=== PATIENT | female | born 1980 | race Caucasian/White ===

== ENCOUNTER 2018-01-28 03:17 | Emergency (ER) | payer SELFPAY ==
[2018-01-28] MEDS ORDERED: ACETAMINOPHEN 325 MG TABLET PO ONE (03:31)
--- NOTE | 2018-01-28 04:03 | ER Document Report ---
HPI - HPI Patient complains to provider of: left ankle and foot injury Pain Level: 4 Context: Patient is a 37-year-old female that comes to the emergency department for chief complaint of left foot/ankle injury. She states she was walking outside in the rain, she accidentally slipped and inverted her ankle/foot causing pain and some swelling over the foot. She called EMS and was brought to the emergency department. She denies fall or any other injuries. LMP within the past month. She denies any daily medications or medical problems. - REPRODUCTIVE LMP: na Past Medical History - General Information source: Patient - Social History Smoking Status: Never Smoker Frequency of alcohol use: None Drug Abuse: None Lives with: Family Family History: Reviewed & Not Pertinent - Medical History Medical History: Negative Surgical Hx: Negative - Immunizations Immunizations up to date: Yes Hx Diphtheria, Pertussis, Tetanus Vaccination: Yes Vertical Provider Document - CONSTITUTIONAL General Appearance: WD/WN, No Apparent Distress - INFECTION CONTROL TRAVEL OUTSIDE OF THE [place] IN LAST 30 DAYS: No - HEENT HEENT: Atraumatic, Normocephalic - NECK Neck: Normal Inspection - RESPIRATORY Respiratory: Breath Sounds Normal, No Respiratory Distress - CARDIOVASCULAR Cardiovascular: Regular Rate, Regular Rhythm - GI/ABDOMEN Gastrointestinal: Abdomen Soft, Abdomen Non-Tender - BACK Back: Normal Inspection - MUSCULOSKELETAL/EXTREMETIES Musculoskeletal/Extremeties: Tender - Tenderness over the dorsum of the foot and over the MTPs of the left foot, small amount of bruising noted over the dorsum of the foot as well, this is minimal. No open wounds. Range of motion of the ankle intact, unremarkable leg, knee, hip exam. Capillary refill and sensation intact, dorsalis pedis intact. Course - Re-evaluation Re-evalutation: Patient secondarily asks me to look at her back, she has an area that appears to be soft fatty tissue just under the skin on the left upper/mid back. Probably lipoma, no erythema or significant tenderness. Recommended surgical clinic follow-up for this. Imaging unremarkable, minimal bruising over the dorsum of the foot on exam, unremarkable exam otherwise. Suspect sprain and soft tissue injury only. Placed mobilization, discussed treatment, expectations, follow-up, return precautions. Patient states satisfaction and agreement. - Vital Signs Vital signs: Temp Pulse Resp BP Pulse Ox 98.2 F 86 18 110/62 98 01/28/18 03:34 01/28/18 03:34 01/28/18 03:34 01/28/18 03:34 01/28/18 03:34 Procedures - Immobilization Left ankle Pre-Proc Neuro Vasc Exam: Normal Immobilizer type: Norman wrap, Ankle stirrup Performed by: RN Post-Proc Neuro Vasc Exam: Normal Alignment checked and good: Yes Discharge - Discharge Clinical Impression: Left ankle injury Qualifiers: Encounter type: initial encounter Qualified Code(s): S99.912A - Unspecified injury of left ankle, initial encounter Injury of left foot Qualifiers: Encounter type: initial encounter Qualified Code(s): S99.922A - Unspecified injury of left foot, initial encounter Condition: Stable Disposition: HOME, SELF-CARE Additional Instructions: Your examination is consistent with a sprain of the ATF ligament of the left foot/ankle. This can cause swelling and pain. Recommendation is to elevate, ice 3-4 times a day for 10-15 minutes, take prescribed anti-inflammatory, use the splint/wrap, use the crutches for 2-3 days. After a brief period the symptoms of swelling and pain should resolve, resume activity as tolerated. Follow-up with primary care. Return for any concerning symptoms including severe swelling or pain. In regards to your back, there appears to be a lipoma although this is not definite. Follow-up electively routinely with the surgical clinic referral for additional management. Prescriptions: Naproxen 500 mg PO BID PRN #20 tablet PRN Reason: Referrals: [facility] [Provider Group] - Follow up as needed
--- NOTE | 2018-01-28 04:15 | RADIOLOGY REPORT (SQ) ---
EXAM DESCRIPTION: 3 views of the left ankle CLINICAL HISTORY: 37 years, Female, injury COMPARISON: None. FINDINGS: There is no acute fracture or dislocation. There is no focal soft tissue swelling or joint effusion. The bony alignment is normal. Limited evaluation of the distal tibia/ fibula demonstrate no gross abnormalities. The talus, calcaneus, tarsal, and metatarsal bones are grossly normal in appearance. The intertarsal, tarsometatarsal, and visualized metatarsophalangeal joints are grossly normal in appearance. IMPRESSION: No acute fracture or dislocation.
--- NOTE | 2018-01-28 04:15 | RADIOLOGY REPORT (SQ) ---
EXAM DESCRIPTION: 3 views of the left foot January 28, 2018 CLINICAL HISTORY: 37 years, Female, injury COMPARISON: None. FINDINGS: There is no acute fracture or dislocation. The bony alignment is normal. There is no focal soft tissue swelling or joint effusion. The tarsal, metatarsal, and phalangeal bones are normal in appearance. The intertarsal, tarsometatarsal, metatarsophalangeal, and interphalangeal joints are grossly normal. IMPRESSION: No acute fracture or dislocation.
[2018-01-28] MEDS ORDERED: HYDROCODONE/ACETAMINOPHEN 5-325 MG TABLET PO ONE (04:44)
[2018-01-28 05:02] VITALS: BP 123/76
== END 2018-01-28 05:00 | disposition home or self-care (01) ==
LOC: ER 03:17
PROC: 2W3RX1Z Immobilization of Left Lower Leg using Splint (ICD-10-PCS; principal; 2018-01-28)
DX: S99.912A Unspecified injury of left ankle, initial encounter (principal); S99.922A Unspecified injury of left foot, initial encounter; X50.0XXA Overexertion from strenuous movement or load, initial encounter
CPT/HCPCS: 99284

== ENCOUNTER 2018-09-30 18:13 | Emergency (ER) | payer SELFPAY ==
[2018-09-30] MEDS ORDERED: HYDROCODONE/ACETAMINOPHEN 5-325 MG TABLET PO ONE (19:35)
--- NOTE | 2018-09-30 19:46 | ER Document Report ---
HPI - HPI Patient complains to provider of: Right ankle and foot pain Time Seen by Provider: 09/30/18 19:28 Onset: Yesterday Onset/Duration: Sudden Quality of pain: Sharp Pain Level: 5 Context: Patient states she was stepping down and felt a sudden pop in the ankle area. Patient states since then she has had pain to the right foot and ankle. Patient also complains of a lump to the upper back area that has been there for the past year. Associated Symptoms: Other - Right ankle pain, lump to thoracic back area Exacerbated by: Standing, Movement, Walking Relieved by: Denies Similar symptoms previously: No Recently seen / treated by doctor: No - ROS ROS below otherwise negative: Yes Systems Reviewed and Negative: Yes All other systems reviewed and negative - CONSTITUTIONAL Constitutional: DENIES: Fever - NEURO Neurology: DENIES: Weakness - RESPIRATORY Respiratory: DENIES: Trouble Breathing, Coughing - GASTROINTESTINAL Gastrointestinal: DENIES: Nausea - REPRODUCTIVE Reproductive: DENIES: : - MUSCULOSKELETAL Musculoskeletal: REPORTS: Extremity pain - right ankle. DENIES: Swelling - DERM Skin Color: Normal Skin Problems: Cyst - Upper back area Past Medical History - General Information source: Patient - Social History Smoking Status: Current Every Day Smoker Frequency of alcohol use: Occasional Drug Abuse: None Occupation: Retail Lives with: Spouse/Significant other Family History: Reviewed & Not Pertinent Patient has suicidal ideation: No Patient has homicidal ideation: No - Medical History Medical History: Negative Renal/ Medical History: Denies: Hx Peritoneal Dialysis Past Surgical History: Reports: Hx Tonsillectomy - Immunizations Immunizations up to date: Yes Hx Diphtheria, Pertussis, Tetanus Vaccination: Yes Vertical Provider Document - CONSTITUTIONAL Agree With Documented VS: Yes Exam Limitations: No Limitations General Appearance: WD/WN, No Apparent Distress - INFECTION CONTROL TRAVEL OUTSIDE OF THE [place] IN LAST 30 DAYS: No - HEENT HEENT: Atraumatic, Normocephalic - NECK Neck: Normal Inspection. negative: Lymphadenopathy-Left, Lymphadenopathy-Right - RESPIRATORY Respiratory: Breath Sounds Normal, No Respiratory Distress - CARDIOVASCULAR Cardiovascular: Regular Rate, Regular Rhythm Pulses: Normal: Dorsalis pedis - BACK Back: Abnormal Inspection - Mobile nodular lesion to mid thoracic area, no overlying erythema. negative: CVA Tenderness-Right, CVA Tenderness-Left - MUSCULOSKELETAL/EXTREMETIES Musculoskeletal/Extremeties: MAEW, Tender - Tenderness over right foot days of the fifth metatarsal, tenderness over lateral malleolar area and posterior ankle. Normal skin color and temperature overlying joint. No edema. Patient with exaggerated pain response with very minimal light palpation, No Edema. negative: Eccymosis - NEURO Level of Consciousness: Awake, Alert, Appropriate Motor/Sensory: No Motor Deficit, No Sensory Deficit - DERM Integumentary: Warm, Dry, No Rash Course - Re-evaluation Re-evalutation: 09/30/18 20:40 No acute fracture. Patient states pain is resolved at this time. No concern f or septic arthritis or gout at this time. Will treat for likely sprain. Patient encouraged to follow-up with general surgeon for further evaluation of cystic type lesion to her back. - Vital Signs Vital signs: Temp Pulse Resp BP Pulse Ox 98.2 F 80 20 116/79 96 09/30/18 18:19 09/30/18 18:19 09/30/18 18:19 09/30/18 18:19 09/30/18 18:19 - Diagnostic Test Radiology reviewed: Image reviewed, Reports reviewed Procedures - Immobilization Right Ankle Pre-Proc Neuro Vasc Exam: Normal Immobilizer type: Ankle stirrup Performed by: PCT Post-Proc Neuro Vasc Exam: Normal Alignment checked and good: Yes Discharge - Discharge Clinical Impression: Subcutaneous cyst Ankle sprain Qualifiers: Encounter type: initial encounter Involved ligament of ankle: unspecified ligament Laterality: right Qualified Code(s): S93.401A - Sprain of unspecified ligament of right ankle, initial encounter Condition: Stable Disposition: HOME, SELF-CARE Instructions: Ankle Stirrup Splint ([facility]), Use of Crutches ([facility]), Ice Packs ([facility]), Sprained Ankle ([facility]) Additional Instructions: Return immediately for any new or worsening symptoms Followup with your primary care provider, call tomorrow to make a followup appointment Weightbearing as tolerated Follow-up with orthopedics for any persistent pain or problems Follow-up with general surgeon for further evaluation of the cyst on your back Prescriptions: Naproxen [Naprosyn 250 Nmg Tablet] 1 tab PO BID #14 tablet Forms: Smoking Cessation Education, Return to Work Referrals: [facility] ([facility] [Provider Group] - Follow up as needed [facility] [Provider Group] - Follow up as needed
--- NOTE | 2018-09-30 20:03 | RADIOLOGY REPORT (SQ) ---
EXAM DESCRIPTION: ANKLE RIGHT COMPLETE COMPLETED DATE/TIME: 09/30/2018 7:49 pm REASON FOR STUDY: felt pop in foot/ankle, pain COMPARISON: Concurrent foot radiographs NUMBER OF VIEWS: Three views. TECHNIQUE: AP, lateral, and oblique radiographic images acquired of the right ankle. LIMITATIONS: None. FINDINGS: MINERALIZATION: Normal. BONES: No acute fracture or dislocation. No worrisome bone lesions. JOINTS: No effusions. SOFT TISSUES: No soft tissue gas. No foreign body. OTHER: No other significant finding. IMPRESSION: NEGATIVE STUDY OF THE RIGHT ANKLE. NO RADIOGRAPHIC EVIDENCE OF ACUTE INJURY. TECHNICAL DOCUMENTATION: JOB ID: [id number] [employer]- All Rights Reserved Reading location - IP/workstation name: [email or web address]
--- NOTE | 2018-09-30 20:03 | RADIOLOGY REPORT (SQ) ---
EXAM DESCRIPTION: FOOT RIGHT COMPLETE COMPLETED DATE/TIME: 09/30/2018 7:49 pm REASON FOR STUDY: felt pop in foot/ankle, pain COMPARISON: Concurrent ankle radiographs NUMBER OF VIEWS: Three views. TECHNIQUE: AP, lateral and oblique radiographic images acquired of the right foot. LIMITATIONS: None. FINDINGS: MINERALIZATION: Normal. BONES: No acute fracture or dislocation. No worrisome bone lesions. JOINTS: No effusions. SOFT TISSUES: No soft tissue swelling. No foreign body. OTHER: No other significant finding. IMPRESSION: NEGATIVE STUDY OF THE RIGHT FOOT. NO RADIOGRAPHIC EVIDENCE OF ACUTE INJURY. TECHNICAL DOCUMENTATION: JOB ID: [id number] [employer]- All Rights Reserved Reading location - IP/workstation name: [email or web address]
[2018-09-30 20:59] VITALS: BP 130/87
== END 2018-09-30 20:58 | disposition home or self-care (01) ==
LOC: ER 18:13
DX: S93.401A Sprain of unspecified ligament of right ankle, initial encounter (principal); M79.671 Pain in right foot; M25.572 Pain in left ankle and joints of left foot; X58.XXXA Exposure to other specified factors, initial encounter; R22.2 Localized swelling, mass and lump, trunk; F17.200 Nicotine dependence, unspecified, uncomplicated
CPT/HCPCS: 99283; 73610; 73630; L1902

== ENCOUNTER 2018-12-01 10:20 | Emergency (ER) | payer SELFPAY ==
[2018-12-01 10:27] VITALS: BP 119/68
--- NOTE | 2018-12-01 10:37 | ER Document Report ---
HPI - HPI Time Seen by Provider: 12/01/18 10:31 Pain Level: 4 Notes: Patient is a 38-year-old female with no significant past medical history who presents complaining of right index finger pain status post crush injury between 2 doors prior to arrival. Patient states that she has noticed some swelling. She does have pain with movement of the finger. The pain does not radiate. Denies drug allergies. No other concerns or complaints. Denies any headache, fever, neck pain, URI, sore throat, chest pain, palpitations, syncope, cough, shortness of breath, wheeze, dyspnea, abdominal pain, nausea/vomiting/diarrhea, urinary retention, dysuria, hematuria, loss of control of bowel or bladder, numbness/tingling, muscle paralysis/weakness, or rash. - ROS Systems Reviewed and Negative: Yes All other systems reviewed and negative - REPRODUCTIVE Reproductive: DENIES: : Past Medical History - Social History Smoking Status: Current Some Day Smoker Family History: Reviewed & Not Pertinent Renal/ Medical History: Denies: Hx Peritoneal Dialysis Past Surgical History: Reports: Hx Tonsillectomy - Immunizations Immunizations up to date: Yes Hx Diphtheria, Pertussis, Tetanus Vaccination: Yes Vertical Provider Document - CONSTITUTIONAL Agree With Documented VS: Yes Notes: PHYSICAL EXAMINATION: GENERAL: Well-appearing, well-nourished and in no acute distress. HEAD: Atraumatic, normocephalic. NECK: Normal range of motion, supple without lymphadenopathy. No midline tenderness. LUNGS: Breath sounds clear to auscultation bilaterally and equal. No wheezes rales or rhonchi. HEART: Regular rate and rhythm without murmurs, rubs, gallops. Musculoskeletal: Rt hand/wrist: + swelling and minimal ecchymosis (w/o subungual hematoma) noted to the index finger distally with associated tenderness. No nail damage. N/V intact distal. FROM to passive/active at the wrist. Strength 5+/5. No scaphoid tenderness. Extremities: No cyanosis, clubbing, or edema b/l. Peripheral pulses 2+. Capillary refill less than 3 seconds. NEUROLOGICAL: Normal speech, normal gait. Normal sensory, motor exams otherwise unremarkable PSYCH: Normal mood, normal affect. SKIN: see above. No rash - INFECTION CONTROL TRAVEL OUTSIDE OF THE [place] IN LAST 30 DAYS: No Course - Re-evaluation Re-evalutation: 12/01/18 Patient is an afebrile, well-hydrated, 38-year-old female who presents to the ED with right index pain which I suspect to be a contusion. Vitals are acceptable without any significant tachycardia, tachypnea, or hypoxia. PE is otherwise unremarkable for any neurovascular compromise, obvious tendon/ligament rupture, obvious fracture/dislocation, septic joint. X-ray was unremarkable for any acute pathology. Finger splint provided today. Patient is nontoxic-appearing. No other labs or imaging warranted at this time based on H&P. Conservative measures otherwise for symptoms. Recheck with your PCM in 3-5 days. Consider consult orthopedics. Return to the ED with any worsening/concerning symptoms otherwise as reviewed in discharge. Patient is in agreement. - Vital Signs Vital signs: Temp Pulse Resp BP Pulse Ox 98.0 F 118 H 18 119/68 93 12/01/18 10:26 12/01/18 10:26 12/01/18 10:26 12/01/18 10:26 12/01/18 10:26 Discharge - Discharge Clinical Impression: Finger injury Qualifiers: Encounter type: initial encounter Laterality: right Qualified Code(s): S69.91XA - Unspecified injury of right wrist, hand and finger(s), initial encounter Condition: Stable Disposition: HOME, SELF-CARE Additional Instructions: Rest, Ice, Compression, Elevation Tylenol/ibuprofen as needed Light stretches daily Strength exercises as able Moist heat and massage may help F/u with your PCP in 3-5 days for a recheck Consider consult(s) with Orthopedics/physical therapy for ongoing/worsening symptoms Return to the ED with any worsening symptoms and/or development of fever, headache, chest pain, palpitations, syncope, shortness of breath, trouble breathing, abdominal pain, n/v/d, muscle weakness/paralysis, numbness/tingling, swelling, redness, or other worsening symptoms that are concerning to you. Prescriptions: Naproxen 500 mg PO BID #10 tablet Forms: Smoking Cessation Education, Return to Work Referrals: [facility] ([facility] [Provider Group] - Follow up as needed
--- NOTE | 2018-12-01 11:38 | RADIOLOGY REPORT (SQ) ---
EXAM DESCRIPTION: HAND RIGHT 3 VIEWS COMPLETED DATE/TIME: 12/01/2018 10:51 am REASON FOR STUDY: rt index finger pain s/p crush injury COMPARISON: None. EXAM PARAMETERS: NUMBER OF VIEWS: Three views. TECHNIQUE: AP, lateral and oblique radiographic images acquired of the right hand. LIMITATIONS: None. FINDINGS: MINERALIZATION: Normal. BONES: No acute fracture or dislocation. No worrisome bone lesions. JOINTS: No effusions. SOFT TISSUES: No soft tissue swelling. No foreign body. OTHER: No other significant finding. IMPRESSION: NEGATIVE STUDY OF THE RIGHT HAND. NO RADIOGRAPHIC EVIDENCE OF ACUTE INJURY. TECHNICAL DOCUMENTATION: JOB ID: [id number] [employer]- All Rights Reserved Reading location - IP/workstation name: [email or web address]
== END 2018-12-01 12:00 | disposition home or self-care (01) ==
LOC: ER 10:20
DX: S69.91XA Unspecified injury of right wrist, hand and finger(s), initial encounter (principal); M79.644 Pain in right finger(s); M79.89 Other specified soft tissue disorders; X58.XXXA Exposure to other specified factors, initial encounter; F17.200 Nicotine dependence, unspecified, uncomplicated
CPT/HCPCS: 99283